=== PATIENT | male | born 1990 | race Two or more races ===

== ENCOUNTER 2017-05-07 02:42 | Emergency (ER) | payer MEDICAID ==
[~2017-05-07] VITALS: Ht 170.2 cm; Wt 68.0 kg
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
[2017-05-07] MEDS ORDERED: LIDOCAINE VISCOUS 2% UD 15 ML UDC ONE (02:51)
[2017-05-07] MEDS ORDERED: TDAP [DIPH/PERTUSSIS/TET] 0.5 ML VIAL IM ONE ×2 (02:51→03:00)
[2017-05-07] MEDS ORDERED: LIDOCAINE VISCOUS 2% UD 15 ML UDC MM ONE (03:00)
[2017-05-07] MEDS ORDERED: SILVER SULFADIAZINE CREAM 25 GM TUBE TP ONE (03:00)
[2017-05-07] MEDS ORDERED: SILVER SULFADIAZINE CREAM 25 GM TUBE ONE (03:02)
--- NOTE | 2017-05-07 03:20 | NUR ---
WOUND CARE DONE. MEDICATED ORDERED BY DR PURI. PLACED LOOSE NON ADHERENT DRESSINGS. PATIENT JANKI PROCEDURE WELL.
--- NOTE | 2017-05-07 03:40 | NUR ---
Patient discharged to home in stable condition. Written and verbal after care instructions given. Patient verbalizes understanding of instruction. Patient is ambulatory with steady gait, no further complaints.
[2017-05-07 03:52] VITALS: BP 134/98
== END 2017-05-07 03:53 | disposition home or self-care (01) ==
LOC: ER 02:44
DX: T23.292A Burn of second degree of multiple sites of left wrist and hand, initial encounter (principal); Z87.440 Personal history of urinary (tract) infections; X08.8XXA Exposure to other specified smoke, fire and flames, initial encounter; Y93.89 Activity, other specified; Y92.89 Other specified places as the place of occurrence of the external cause; Y99.9 Unspecified external cause status
CPT/HCPCS: 90715; A4606; Z7610

== ENCOUNTER 2020-01-09 06:22 | Emergency (ER) | payer BC, MEDICAID ==
[~2020-01-09] VITALS: Ht 175.3 cm; Wt 72.6 kg
[2020-01-09] MEDS ORDERED: LIDOCAINE 1% INJ 50 ML MDV IJ ONE ×2 (06:41→07:00)
--- NOTE | 2020-01-09 07:04 | NUR ---
DR. SCHMIDT AT THE BED SIDE FOR I&D
--- NOTE | 2020-01-09 07:27 | NUR ---
PT WAS PROVIDED W/ LEFT INDEX DRESSING. NO BLEEDING NOTED. CLEAR FOR D/C HOME PER MD. Patient discharged to home in stable condition. Rx and Written and verbal after care instructions given. Patient verbalizes understanding of instruction.
[2020-01-09 07:28] VITALS: BP 138/75
== END 2020-01-09 07:29 | disposition home or self-care (01) ==
LOC: ER 06:26
DX: L03.012 Cellulitis of left finger (principal)
CPT/HCPCS: 10060; 99283; J3490

== ENCOUNTER 2020-01-11 06:03 | Emergency (ER) | payer BC ==
[~2020-01-11] VITALS: Ht 177.8 cm; Wt 63.5 kg
[2020-01-11 06:17] VITALS: BP 133/89
--- NOTE | 2020-01-11 07:00 | NUR ---
Patient discharged to home in stable condition. Written and verbal after care instructions given. Patient verbalizes understanding of instruction. Pt ambulatory with a steady gait
== END 2020-01-11 07:01 | disposition home or self-care (01) ==
LOC: ER 06:03
DX: L03.012 Cellulitis of left finger (principal)

== ENCOUNTER 2020-06-22 13:59 | Emergency (ER) | payer BC ==
[~2020-06-22] VITALS: Ht 170.2 cm; Wt 59.0 kg
--- NOTE | 2020-06-22 14:15 | NUR ---
patient came in to the er c/o dysuria since tuesday. On room air, breathing evenly and unlabored. kept comfortable, will continue to monitor accordingly.
[2020-06-22] MEDS ORDERED: CEFTRIAXONE 1 G VIAL ONE (14:22)
[2020-06-22] MEDS ORDERED: AZITHROMYCIN 250 MG TABLET ONE (14:22)
[2020-06-22] MEDS ORDERED: LIDOCAINE /MPF 1% VIAL 5 ML VIAL ONE (14:23)
[2020-06-22] MEDS ORDERED: AZITHROMYCIN 250 MG TABLET PO ONE (14:30)
[2020-06-22] MEDS ORDERED: CEFTRIAXONE 500 MG VIAL IM ONE (14:30)
[2020-06-22 14:31] VITALS: BP 140/91
--- NOTE | 2020-06-22 14:31 | NUR ---
Patient discharged to home in stable condition. Written and verbal after care instructions given. Patient verbalizes understanding of instruction.
== END 2020-06-22 14:31 | disposition home or self-care (01) ==
LOC: ER 13:59
DX: A64 Unspecified sexually transmitted disease (principal)
CPT/HCPCS: 87491; 87591; 96372; 99283; J0696; J3490

== ENCOUNTER 2022-09-12 20:46 | Emergency (ER) | payer SELFPAY ==
[~2022-09-12] VITALS: Ht 175.3 cm; Wt 63.5 kg
[2022-09-12 21:23] VITALS: BP 141/84
[2022-09-12] MEDS ORDERED: TDAP [DIPH/PERTUSSIS/TET] 0.5 ML VIAL IM ONE ×2 (21:51→22:00)
[2022-09-12] MEDS ORDERED: IBUPROFEN 600 MG TABLET ONE (21:51)
[2022-09-12] MEDS ORDERED: CEPHALEXIN MONOHYDRATE 500 MG CAPSULE PO ONE ×2 (21:51→22:00)
[2022-09-12] MEDS ORDERED: IBUPROFEN 600 MG TABLET PO ONE (22:00)
[2022-09-12] MEDS ORDERED: CEPH500T PO (22:41)
--- NOTE | 2022-09-12 23:29 | NUR ---
Patient discharged to home in stable condition. Written and verbal after care instructions given. Patient verbalizes understanding of instruction.
== END 2022-09-12 23:29 | disposition home or self-care (01) ==
LOC: ER 20:50
DX: S01.01XA Laceration without foreign body of scalp, initial encounter (principal); M25.571 Pain in right ankle and joints of right foot; Z87.440 Personal history of urinary (tract) infections; W01.198A Fall on same level from slipping, tripping and stumbling with subsequent striking against other object, initial encounter; Y93.89 Activity, other specified; Y92.89 Other specified places as the place of occurrence of the external cause; Y99.8 Other external cause status
CPT/HCPCS: 73610-TC; 90715